=== PATIENT | female | born 1990 | race African-American/Black ===

== ENCOUNTER 2019-04-21 17:02 | Emergency (ER) | payer BC ==
[2019-04-21] MEDS ORDERED: Ketorolac Tromethamine 30 MG/ML VIAL ONE (18:18)
== END 2019-04-21 18:55 | disposition home or self-care (01) ==
LOC: ERS 17:02
DX: S16.1XXA Strain of muscle, fascia and tendon at neck level, initial encounter (principal); F17.210 Nicotine dependence, cigarettes, uncomplicated; Z71.6 Tobacco abuse counseling; V85.5XXA Driver of special construction vehicle injured in nontraffic accident, initial encounter
CPT/HCPCS: 96372; 99406; J1885; L0120

== ENCOUNTER 2022-05-08 15:59 | Emergency (ER) | payer SELFPAY ==
[2022-05-08] MEDS ORDERED: Ketorolac Tromethamine 30 MG/ML VIAL ONE (17:10)
[2022-05-08] MEDS ORDERED: Dicyclomine 20 MG/2 ML VIAL ONE (17:10)
[2022-05-08] MEDS ORDERED: Ondansetron ODT 4 MG TAB ONE (17:10)
== END 2022-05-08 17:31 | disposition home or self-care (01) ==
LOC: ERS 15:59
DX: K52.9 Noninfective gastroenteritis and colitis, unspecified (principal); F17.210 Nicotine dependence, cigarettes, uncomplicated
CPT/HCPCS: 96372; 99283; J1885; Q0162

== ENCOUNTER 2022-08-07 17:49 | Emergency (ER) | payer SELFPAY ==
[2022-08-07] MEDS ORDERED: Famotidine 20 MG TAB ONE (20:53)
[2022-08-07] MEDS ORDERED: predniSONE 20 MG TAB ONE (20:53)
== END 2022-08-07 22:54 | disposition home or self-care (01) ==
LOC: ERS 17:49
DX: S00.261A Insect bite (nonvenomous) of right eyelid and periocular area, initial encounter (principal); F17.210 Nicotine dependence, cigarettes, uncomplicated; W57.XXXA Bitten or stung by nonvenomous insect and other nonvenomous arthropods, initial encounter
CPT/HCPCS: 99283; J7512

== ENCOUNTER 2023-12-06 01:33 | Inpatient (IN) | payer OTHER, SELFPAY ==
[2023-12-06] MEDS ORDERED: Ketorolac Tromethamine 30 MG (1 mL) VIAL ONE ×2 (02:31→10:32)
[2023-12-06] MEDS ORDERED: Ondansetron PF 4 MG/2 ML Vial ONE ×2 (02:31→03:02)
[2023-12-06] MEDS ORDERED: Morphine 4 MG/ML VIAL ONE (02:31)
[2023-12-06] MEDS ORDERED: fentaNYL 50 mcg/mL 1 mL Vial ONE ×2 (03:02→15:44)
[2023-12-06 03:06] LABS: #Basophils Less than 0.03 10x3/uL (0.0-0.2); #Eosinophils Less than 0.03 10x3/uL (0.0-0.7); %Basophils 0.3 % (0.0-1.0); %Eosinophils 0.2 % (0.0-10.0); %Lymphocytes 16.9 % (21.0-51.0); %Monocytes 7.1 % (0.0-10.0); %Neutrophils 75.2 % (42.0-75.0); Hematocrit 29.1 % (36.0-47.0); Mean Corpuscular HGB CONC 30.9 g/dL (32.0-36.0); Mean Corpuscular Volume 93.9 fL (78.0-98.0); Mean Platelet Volume 10.7 fL (7.4-10.4); Platelet Count 263 10x3/uL (130-400); RBC Distribution Width 13.9 % (11.5-14.5)
[2023-12-06 03:19] LABS: BHCG - Serum Negative (NEGATIVE); Pregs Control Background? CLEAR/WHITE (CLR/WHITE); Pregs Control Bar Appear? YES (CONTROL BAR)
[2023-12-06 03:28] LABS: ALT (SGPT) 15 U/L (8-55); AST (SGOT) 17 U/L (5-34); Albumin 3.5 g/dL (3.5-5.0); Alkaline Phosphatase 70 U/L (40-110); Anion Gap 12 mmol/L (10-20); BUN (Urea Nitrogen) 16 mg/dL (7.0-18.7); Bilirubin, Total 0.3 mg/dL (0.2-1.2); Calc. Creatinine Clearance 0 mL/min (70-130); Calcium 8.7 mg/dL (7.8-10.44); Carbon Dioxide 22 mmol/L (22-29); Chloride 111 mmol/L (98-107); Estimated GFR 75; Glucose 155 mg/dL (70-105); Protein, Total 6.5 g/dL (6.0-8.3); Sodium 142 mmol/L (136-145)
[2023-12-06] MEDS ORDERED: HYDROmorphone 0.5 MG/0.5 ML SYRINGE ONE (05:38)
[2023-12-06] MEDS ORDERED: Promethazine HCl 25 MG/ML VIAL ONE (05:39)
[2023-12-06] MEDS ORDERED: Ondansetron PF 4 MG/2 ML Vial IVP PRN (07:38)
[2023-12-06] MEDS ORDERED: Morphine 2 MG/ML VIAL ONE (08:15)
[2023-12-06] MEDS: Morphine 4 MG/ML VIAL SLOW IVP PRN (08:29)
[2023-12-06] MEDS: Sodium Chloride 0.9% 1,000 ML IV SCH (08:30)
[2023-12-06 08:47] VITALS: BMI 27.3
[2023-12-06] MEDS ORDERED: Acetaminophen 325 MG TAB ONE (10:37)
[2023-12-06] MEDS: Ketorolac Tromethamine 30 MG (1 mL) VIAL IVP PRN (10:44)
[2023-12-06] MEDS: Acetaminophen 325 MG TAB PO PRN (10:45)
[2023-12-06 11:21] LABS: Bilirubin Negative (Negative); Blood, Urine 3+ (Negative); CAUTI Indications for Culture Pelvic or flank pain; Clarity Turbid (Clear); Glucose, Urine (Dipstick) Normal (Negative); Ketone, Urine Trace mg/dL (Negative); Leukocyte 75 Leu/uL (Negative); Nitrite Negative (Negative); Protein, Urine (Dipstick) 20 mg/dL (Neg-Trace); Specific Gravity, Urine 1.011 (1.002-1.036); Urobilinogen Normal mg/dL (Less than 2); pH, Urine 5.5 (5.0-9.0)
[2023-12-06 11:33] LABS: Bacteria/HPF Rare-Few HPF (None Seen)
[2023-12-06 11:34] LABS: Urine Culture Reflex No No
[2023-12-06] MEDS ORDERED: PROPOFOL 20 ML ONE (13:49)
[2023-12-06] MEDS ORDERED: fentaNYL PF 100 MCG/2 ML SYRINGE ONE (14:37)
[2023-12-06] MEDS ORDERED: Midazolam HCl 2 mg/2 ml Vial ONE (14:38)
[2023-12-06] MEDS ORDERED: LevoFLOXacin D5W 500 mg (100 mL) BAG ONE (14:39)
[2023-12-06] MEDS ORDERED: Dexamethasone 20 MG/5 ML VIAL ONE (15:00)
[2023-12-06] MEDS ORDERED: Phenazopyridine HCl 100 MG TAB PO PRN (16:51)
[2023-12-06] MEDS: Oxybutynin 5 MG TAB PO PRN (18:26)
[2023-12-06] MEDS: traMADol HCl 50 MG TAB PO PRN (20:36)
[2023-12-07 04:13] LABS: #Basophils Less than 0.03 10x3/uL (0.0-0.2); #Eosinophils Less than 0.03 10x3/uL (0.0-0.7); %Basophils 0.2 % (0.0-1.0); %Lymphocytes 21.4 % (21.0-51.0); %Neutrophils 71.1 % (42.0-75.0); Hematocrit 28.5 % (36.0-47.0); Hemoglobin 8.7 g/dL (12.0-16.0); Mean Corpuscular HGB CONC 30.5 g/dL (32.0-36.0); Mean Corpuscular Hemoglobin 29.1 pg (27.0-31.0); Mean Corpuscular Volume 95.3 fL (78.0-98.0); Mean Platelet Volume 11.3 fL (7.4-10.4); Platelet Count 232 10x3/uL (130-400); RBC Distribution Width 14.3 % (11.5-14.5); Red Blood Cell (RBC) Count 2.99 mill/uL (4.20-5.40)
[2023-12-07 04:21] LABS: Anion Gap 8 mmol/L (10-20); BUN (Urea Nitrogen) 13 mg/dL (7.0-18.7); Calc. Creatinine Clearance 131 mL/min (70-130); Calcium 8.3 mg/dL (7.8-10.44); Carbon Dioxide 22 mmol/L (22-29); Chloride 114 mmol/L (98-107); Estimated GFR 102; Glucose 103 mg/dL (70-105); Potassium 3.6 mmol/L (3.5-5.1); Sodium 140 mmol/L (136-145)
[2023-12-07] MEDS: Enoxaparin 40 MG (0.4 mL) SYRINGE SC SCH (08:56)
[2023-12-07 12:45] VITALS: BP 118/62; TEMP 97.8
== END 2023-12-07 14:45 | disposition home or self-care (01) | DRG 661 ==
LOC: ERS 01:33 → ERHOLD 07:28 → 2NO 16:23
PROVIDERS: ADMIT Internal Medicine; ATTEND Internal Medicine
PROC: 0T788DZ Dilation of Bilateral Ureters with Intraluminal Device, Via Natural or Artificial Opening Endoscopic (ICD-10-PCS; principal; 2023-12-06)
PROC: BT1D1ZZ Fluoroscopy of Right Kidney, Ureter and Bladder using Low Osmolar Contrast (ICD-10-PCS; 2023-12-06)
DX: N13.2 Hydronephrosis with renal and ureteral calculous obstruction (principal); F17.210 Nicotine dependence, cigarettes, uncomplicated; N32.89 Other specified disorders of bladder; Z88.0 Allergy status to penicillin; Z79.899 Other long term (current) drug therapy
CPT/HCPCS: 36415; 74018; 74176; 74420; 80048; 80053; 81001; 84703; 85025; 96374; 96375; C2617; J1100; J1170; J1650; J1885; J1956; J2250; J2272; J2405; J2550; J2704; J3010; J7030